=== PATIENT | female | born 1945 | race Caucasian/White ===

== ENCOUNTER → 2016-11-12 | Day surgery (SDC) | payer OTHER ==
[~2016-11-12] MED LIST: ALEVE220 M1 PO; AMLODIPINE BESYL5 MG PO; ASPIRIN81 M2 PO; ATORVASTATIN CA10 MG PO; CADUET 5 MG/201 TAB PO; CALCIUM + D 6001 TA1 PO; CENTRUM SILVER PO; DYAZIDE 37.5/251 CAP PO; LOPRESSOR PO; MEDROL PO; NABUMETONE PO; NIACIN PO; PERCOCET5/325 PO
--- NOTE | ~2016-11-12 | OR ---
Unit #: [id number] #: [id number] Patient: HARJEET RODRIGUEZ [id number] [address] [place], [place] [address] [id number] O MR#: [id number] NAME: HARJEET RODRIGUEZ ROOM: Date of Procedure: 11/12/2016 Admission Date: 11/12/2016 Surgeon: Swapnil Crooks M.D. : 1945 Attending Physician: Manny Crooks Primary Care Physician: Nikhil Méndez M.D. [facility]ENTER OPERATIVE NOTE PROCEDURES PERFORMED Lumbar epidural steroid injection under x-ray guided needle placement with provider administered conscious sedation. PREOPERATIVE DIAGNOSES 1. Acute lumbar radiculitis. 2. Chronic lumbar radicular pain. 3. Spinal stenosis, lumbosacral spine. 4. Degenerative joint disease, lumbosacral spine. 5. Degenerative disk disease, lumbosacral spine. INDICATIONS FOR PROCEDURE The patient presents today with longstanding history of chronic lumbar radicular pain secondary to her underlying degenerative processes. She is generally fairly well managed medically with ongoing continuous conservative measures. She does however occasionally experience exacerbations of her pain, which to date have not responded to her ongoing continuous conservative measures and do require epidural steroid injections. She presents today experiencing just as in exacerbation, which has again failed to respond to her ongoing continuous measures. Her symptoms are primarily left-sided and consistent with the previous x-ray studies and previous visits. Her usual amount of relief is 60% to 80% for 8 to 10 weeks. After discussing risks and benefits of proceeding today with a lumbar approach epidural steroid injection utilizing a dual-needle access technique, the patient agreed this would be the appropriate course of action. DESCRIPTION OF PROCEDURE She was then taken to the operating room, where she was prepped and draped in sterile manner. Standard monitors were applied. She was sedated with 2 mg of IV Versed initially and required additional 2 mg of IV Versed throughout the duration of procedure. Lumbar epidural space accessed at the L5-S1 and L3-L4 levels using loss of resistance technique and x-ray guidance. Needle placement was confirmed with injection of 2 mL of Omnipaque. At the L3-L4 level, approximately 80% of dye was in the superior direction. At the L5-S1 level, approximately 80% of dye was in the inferior direction. Following successful needle placement confirmation which required total x-ray time of 11 seconds, the patient received an injectate containing 4 mL of normal saline and 40 mg of methylprednisolone at each level for a total injectate volume today of 8 mL of normal saline and 80 mg of methylprednisolone. She tolerated this procedure well. She was discharged home with followup instructions, which include an an offer to return to this clinic as early as 02/18, so that we Unit #: [id number] #: [id number] Patient: HARJEET RODRIGUEZ could be of further service to her. Dictated by... Christen Montana/brody TD: 11/12/2016 12:23 JOB #: [id number] [facility] OPERATIVE NOTE Page 1 of 1 X Manny Crooks MD X PROCEDURE OPERATIVE NOTE
== END | disposition home or self-care (01) ==
LOC: CCSC 07:49
DX: G89.29 Other chronic pain (principal); M51.17 Intervertebral disc disorders with radiculopathy, lumbosacral region; M47.27 Other spondylosis with radiculopathy, lumbosacral region; M48.07 Spinal stenosis, lumbosacral region; M19.90 Unspecified osteoarthritis, unspecified site; Z88.2 Allergy status to sulfonamides; Z79.82 Long term (current) use of aspirin; Z79.899 Other long term (current) drug therapy
CPT/HCPCS: J1040; J2250

== ENCOUNTER → 2017-02-18 | Day surgery (SDC) | payer OTHER ==
--- NOTE | ~2017-02-18 | OR ---
Unit #: [id number] #: [id number] Patient: HARJEET RODRIGUEZ [id number] [address] [place], [place] [address] [id number] O MR#: [id number] NAME: HARJEET RODRIGUEZ ROOM: Date of Procedure: 02/18/2017 Admission Date: 02/18/2017 Surgeon: Swapnil Crooks M.D. : 1945 Attending Physician: Manny Crooks Primary Care Physician: Nikhil Méndez M.D. SUR[facility] CENTER OPERATIVE NOTE PROCEDURE Lumbar epidural steroid injection under x-ray guided needle placement with provider administered conscious sedation. PREOPERATIVE DIAGNOSES 1. Acute lumbar radiculitis. 2. Spinal stenosis, lumbosacral spine. 3. Degenerative joint disease, lumbosacral spine. 4. Degenerative disk disease, lumbosacral spine. 5. Facet arthrosis, lumbosacral spine. 6. Facet arthralgia, lumbosacral spine. INDICATIONS FOR PROCEDURE The patient presents today with longstanding history of chronic lumbar radicular pain secondary to her underlying degenerative processes. She is generally fairly well managed medically with ongoing continuous medical management and self-directed physical activity. She does, however, occasionally experience exacerbations of her radicular pain which breakthrough her ongoing continuous conservative measures and to date has only responded to epidural steroid injections. Her usual amount of relief being 60% up for 6 to 8 weeks. She presents today having just such an exacerbation, which has followed its usual pattern of breaking through her pain approximately 6 to 8 weeks past her last epidural and then advancing in a crescendo pattern to the point that it begins to interfere with her activities of daily living. That is the point she is at today; however, she describes what appears to be a worsening of her facet arthralgia symptoms during the intervening time when she was relatively pain controlled from a radicular standpoint. After discussing risks and benefits of proceeding today with a lumbar approach epidural steroid injection utilizing dual needle technique, the patient agreed this would be the appropriate course of action. We also discussed referral to [facility] for potential radiofrequency ablation and we again agreed this would be the appropriate course of action. DESCRIPTION OF PROCEDURE Ms. Rao was then taken to the operating room, where she was prepped and draped in a sterile manner. Standard monitors were applied. She was sedated with 2 mg of IV Versed and lumbar epidural space was accessed at the L5-S1 and L3-L4 levels using loss of resistance technique and x-ray guidance. Needle placement was confirmed at each level with injection of 2 mL of Omnipaque. There was good superior and inferior flow at the L3-4. At the L5 level, approximately 60% to 80% of dye flow was in the inferior direction. Following successful needle placement at the L3-4 and the Unit #: [id number] #: [id number] Patient: HARJEET RODRIGUEZ L5-S1 levels with the total x-ray time of 7 seconds, the patient received an injectate at each level of a needle injectate containing 4 mL of normal saline and 40 mg of methylprednisolone for a total injectate volume today of 8 mL of normal saline and 80 mg of methylprednisolone. She tolerated this procedure well. She was discharged home with followup instructions, which include an offer to return to this clinic as early as 05/27/2017 if we could be of further service to her. Dictated by... Christen Montana/brody TD: 02/19/2017 06:01 JOB #: [id number] [facility] OPERATIVE NOTE Page 1 of 1 X Manny Crooks MD X PROCEDURE OPERATIVE NOTE
== END | disposition home or self-care (01) ==
LOC: CCSC 07:09
DX: G89.29 Other chronic pain (principal); M51.17 Intervertebral disc disorders with radiculopathy, lumbosacral region; M47.27 Other spondylosis with radiculopathy, lumbosacral region; M48.07 Spinal stenosis, lumbosacral region; Z88.2 Allergy status to sulfonamides; Z98.890 Other specified postprocedural states; Z79.1 Long term (current) use of non-steroidal anti-inflammatories (NSAID); Z79.82 Long term (current) use of aspirin; Z79.899 Other long term (current) drug therapy
CPT/HCPCS: J1040; J2250